=== PATIENT | male | born 1985 | race American Indian/Alaskan Native ===

== ENCOUNTER 2021-03-12 14:41 | Observation (INO) | payer OTHER ==
[2021-03-12] MEDS ORDERED: SODIUM CHLORIDE 0.9% 1000 ML 1,000 ML IV ONE (16:54)
[2021-03-12] MEDS ORDERED: diphenhydrAMINE 50 MG/ML VIAL IV ONE (16:55)
[2021-03-12] MEDS ORDERED: METOCLOPRAMIDE 10 MG/2 ML INJ IV ONE (16:55)
[2021-03-12] MEDS ORDERED: LACTATED RINGERS 1,000 ML IV ONE (16:55)
--- NOTE | 2021-03-12 16:57 | Emergency Department Report ---
ED General Adult HPI - General Chief complaint: Seizure Stated complaint: I am not sure what happened PUI?: No Time Seen by Provider: 03/12/21 16:13 Source: patient, EMS ( EMS documentation not available at time of chart dictation ), RN notes reviewed Mode of arrival: Stretcher Limitations: Other (Patient does not recall what happened) - History of Present Illness Initial comments: The patient is a 36-year-old gentleman. He is not known to myself previously. He is right-hand dominant. He denies chronic medical conditions. He denies recreational drug consumption. He is reportedly brought to the hospital by emergency medical services for a possible seizure. The patient reports that he was at work. He does not know what happened next. He was told that he may have had a convulsion or a seizure. The patient has bilateral shoulder pain, and generalized body aches. He has mild nausea. He denies headache, neck pain, chest pain, abdominal pain, shortness of breath, urinary symptoms, focal extremity weakness/numbness, loss of taste, loss of smell. He endorses generalized loss of appetite. He states this has never happened to him before. The patient is not currently accompanied by friends or family at this time for collateral information or additional information. He does have bilateral nonradiating shoulder pain, which is aching and throbbing, increases with palpation and range of motion. Decreases with rest. -: Sudden Consistency: now resolved Improves with: none Worsens with: none - Related Data Previous Rx's Medication Instructions Recorded Last Taken Type traMADoL [Ultram] 50 mg PO Q6HR PRN #20 tablet 03/13/21 Unknown Rx Allergies Allergy/AdvReac Type Severity Reaction Status Date / Time No Known Allergies Allergy Unverified 03/12/21 15:17 ED Review of Systems ROS: Stated complaint: SEIZURE Other details as noted in HPI Constitutional: other (Denies loss of taste and smell). denies: chills, fever, weakness Eyes: denies: eye discharge, vision change ENT: denies: epistaxis Respiratory: denies: cough Cardiovascular: denies: chest pain Gastrointestinal: denies: vomiting, diarrhea, hematemesis, melena, hematochezia Genitourinary: denies: dysuria Musculoskeletal: back pain, arthralgia, myalgia Neurological: weakness. denies: numbness, abnormal gait Psychiatric: anxiety ED Past Medical Hx - Past Medical History Previous Medical History?: No - Surgical History Past Surgical History?: No - Social History Smoking Status: Current Every Day Smoker - Medications Home Medications: Home Medications Medication Instructions Recorded Confirmed Last Taken Type traMADoL [Ultram] 50 mg PO Q6HR PRN #20 tablet 03/13/21 Unknown Rx ED Physical Exam - General Limitations: No Limitations General appearance: alert, in no apparent distress - Head Head exam: Present: atraumatic, normocephalic - Eye Eye exam: Present: normal appearance, PERRL, EOMI. Absent: nystagmus Pupils: Present: other (Visual acuity intact to finger counting, color perception, reading at a close distance) - ENT ENT exam: Present: normal orophraynx, mucous membranes moist, normal external ear exam - Neck Neck exam: Present: normal inspection, full ROM. Absent: tenderness, meningismus - Respiratory Respiratory exam: Present: normal lung sounds bilaterally. Absent: respiratory distress, wheezes, rales, rhonchi, stridor, decreased breath sounds - Cardiovascular Cardiovascular Exam: Present: regular rate, normal rhythm, normal heart sounds. Absent: bradycardia, tachycardia, irregular rhythm, systolic murmur, diastolic murmur, rubs, gallop - GI/Abdominal GI/Abdominal exam: Present: soft. Absent: distended, tenderness, guarding, rebound, rigid, pulsatile mass - Rectal Rectal exam: Present: deferred - Extremities Exam Extremities exam: Present: normal inspection, full ROM, tenderness (There is bilateral proximal shoulder tenderness.), other (2+ pulses noted in the bilateral upper and lower extremities. There is no palpable cord. negative Homans sign. Muscular compartments are soft. The pelvis is stable.). Absent: pedal edema, calf tenderness - Back Exam Back exam: Present: normal inspection. Absent: tenderness, CVA tenderness (R), CVA tenderness (L), paraspinal tenderness, vertebral tenderness - Neurological Exam Neurological exam: Present: alert, oriented X3, normal gait, other (No facial droop. Tongue midline. Extraocular movements intact bilaterally. Facial sens ation intact to light touch in V1, V2, V3 distribution bilaterally. 5 and a 5 strength in 4 extremities. Sensation intact to light touch in 4 extremities.). Absent: motor sensory deficit - Psychiatric Psychiatric exam: Present: anxious - Skin Skin exam: Present: warm, dry, intact, normal color. Absent: rash ED Course Vital Signs 03/12/21 03/12/21 03/12/21 15:09 15:15 15:16 Temperature 99.2 F Pulse Rate 116 H 123 H Respiratory 17 17 Rate Blood Pressure 131/96 Blood Pressure [Right] O2 Sat by Pulse 96 96 Oximetry 03/12/21 03/12/21 03/12/21 17:01 18:00 19:01 Temperature Pulse Rate 82 97 H 86 Respiratory 18 25 H 20 Rate Blood Pressure 123/86 133/93 133/93 Blood Pressure [Right] O2 Sat by Pulse 99 99 99 Oximetry 03/12/21 03/12/21 03/12/21 20:01 21:01 22:01 Temperature Pulse Rate Respiratory 21 15 13 Rate Blood Pressure 144/97 149/93 Blood Pressure [Right] O2 Sat by Pulse 99 99 100 Oximetry 03/12/21 03/13/21 03/13/21 23:01 00:01 01:15 Temperature Pulse Rate Respiratory Rate Blood Pressure 149/93 149/93 149/93 Blood Pressure [Right] O2 Sat by Pulse 100 99 55 L Oximetry 03/13/21 03/13/21 03/13/21 02:20 03:00 03:54 Temperature Pulse Rate Respiratory Rate Blood Pressure 141/94 137/92 137/92 Blood Pressure [Right] O2 Sat by Pulse Oximetry 03/13/21 03/13/21 03/13/21 04:00 04:54 05:00 Temperature Pulse Rate Respiratory Rate Blood Pressure 137/92 142/97 142/97 Blood Pressure [Right] O2 Sat by Pulse Oximetry 03/13/21 03/13/21 03/13/21 05:46 05:54 06:00 Temperature Pulse Rate Respiratory Rate Blood Pressure 142/97 135/101 135/101 Blood Pressure [Right] O2 Sat by Pulse Oximetry 03/13/21 03/13/21 03/13/21 06:23 06:54 07:00 Temperature Pulse Rate Respiratory Rate Blood Pressure 135/101 131/91 131/91 Blood Pressure [Right] O2 Sat by Pulse Oximetry 03/13/21 03/13/21 03/13/21 07:18 07:20 07:30 Temperature Pulse Rate Respiratory Rate Blood Pressure 135/101 135/101 131/91 Blood Pressure [Right] O2 Sat by Pulse 97 96 96 Oximetry 03/13/21 03/13/21 03/13/21 07:40 07:50 08:00 Temperature Pulse Rate Respiratory Rate Blood Pressure 131/91 131/91 147/99 Blood Pressure [Right] O2 Sat by Pulse 97 96 96 Oximetry 03/13/21 03/13/21 03/13/21 08:10 08:20 08:36 Temperature Pulse Rate 94 H Respiratory 18 Rate Blood Pressure 147/99 147/99 Blood Pressure 149/99 [Right] O2 Sat by Pulse 97 99 100 Oximetry - Reevaluation(s) Reevaluation #1: 03/12/21 17:40 Differential diagnosis, including but not limited to: Seizure, convulsion, thyroid derangement, electrolyte derangement, structural intracranial abnormality, orthostasis, vagal event, structural cardiac disease Assessment and plan: 36-year-old gentleman with possible first-time seizure. He is not currently tachycardic, tachypneic or hypoxic. He denies DVT and pulmonary embolism risk factors, he is low risk by Wells criteria. His tachycardia has resolved. He has a GCS of 15, walks with a steady gait, and is clinically sober. He has bilateral shoulder tenderness. We will treat his symptoms, obtain appropriate laboratory studies, x-ray of the shoulders, noncontrast CT scan of the brain, urinalysis, urine toxicology screen, and reassess. Patient was placed on teletypesetter monitor, seizure precautions will be initiated. Have requested EMS prehospital records. Currently waiting for them to arrive. Reassess after initial data points Have discussed this plan of care with the patient. He has verbalized understanding. He is amenable to this plan of care. 03/12/21 20:32 CT scan of the brain negative for acute findings. X-ray suggest proximal left humerus fracture, and possible scapular fracture. D-dimer elevated. CT scan of chest ordered. Given proximal left humerus fracture, questionable scapular fracture, nonspecific transaminitis (suspect that the patient is not forthcoming about alcohol consumption), new onset convulsion, admit patient to the medical service for supportive care, further diagnostic work-up. Have requested orthopedics consultation. Awaiting callback. Have discussed the patient's history, physical, laboratory studies and imaging studies, plan of care with neurology on-call, Dr. Whelan. Inpatient MRI is recommended. Routine EEG if possible, recommended. Hold AED at this time. Have discussed this plan of care with the patient. He is amenable to admission. 03/12/21 20:42 03/12/21 22:45 Dr. Brink paged at 20:27, 21:03, and 21:45. No answer. I also personally called him at 8: 41 PM, and 09:12 PM. Have escalated this to Director physician services, Mr. Serge Johnson. Hospital team reluctant to admit this patient to the medical service without orthopedic consultation for scapular fracture. CT scan of the chest negative for pulmonary embolism. Right-sided scapular fracture is redemonstrated. 03/12/21 23:[address] back from Dr. Brink our orthopedist. Have reached out to [facility], and had a discussion with their consulting orthopedist, Dr. Mosher. We have discussed the patient's history, physical, pertinent imaging studies, and pertinent diagnoses. We are both in agreement th at this patient does not require emergent orthopedic evaluation this evening, and this patient can have a sling applied to his right upper extremity for comfort, and follow-up with an outpatient orthopedist for elective outpatient surgical fixation of the right posterior scapular injury. Right upper extremity arm sling is reordered. Pain medication ordered. Hospital physician, Dr. Heike Arrieta to admit to [facility] Please note that portions of this chart were completed during [facility] downtime. [facility]. 03/15/21 06:22 ED Medical Decision Making - Lab Data Result diagrams: 03/12/21 18:21 03/12/21 18:21 Vital Signs 03/12/21 03/12/21 03/12/21 15:09 15:15 15:16 Temperature 99.2 F Pulse Rate 116 H 123 H Respiratory 17 17 Rate Blood Pressure 131/96 O2 Sat by Pulse 96 96 Oximetry - EKG Data -: EKG Interpreted by Ca EKG shows normal: sinus rhythm Rate: normal - EKG Data When compared to previous EKG there are: previous EKG unavailable 03/12/21 17:39 EKG interpreted at 17: 03 Sinus rhythm, 87 bpm. Normal axis, QTC 473 ms. Poor R wave progression. High left ventricular voltage. Minimal motion artifact, borderline early repolarization. Not consistent with Brugada. Epsilon wave is not noted. - Radiology Data Radiology results: pending, report reviewed, image reviewed XR shoulder BILAT 2+V INDICATION: Shoulder pain. COMPARISON: None available. FINDINGS: There is a questionable impacted fracture of the surgical neck of the proximal left humerus, which could potentially be chronic. In the right scapula, there is a lucency concerning for a possible right scapular fracture involving the scapular body and glenoid. Signer Name: Atul Bell MD Signed: 03/12/2021 4:34 PM Workstation Name: [id number] CT BRAIN: 03/12/2021 INDICATION / CLINICAL INFORMATION: first time sz. COMPARISON: None available. FINDINGS: BRAIN/INTRACRANIAL STRUCTURES: Unenhanced CT images of the brain demonstrate no evidence of acute intracranial abnormality. Ventricles and sulci are somewhat prominent in size for a patient of this age, consistent with diffuse cerebral atrophy. There is no evidence of acute large vessel territory ischemic injury, hemorrhage, or mass. There are no abnormal extra-axial fluid collections. EXTRACRANIAL STRUCTURES: Unremarkab le. IMPRESSION: No acute abnormality. Cerebral atrophy. All CT scans at this location are performed using dose reduction to ALARA by means of automated exposure control. Signer Name: Andrea Alatorre MD Signed: 03/12/2021 6:14 PM Workstation Name: [id number] CTA CHEST WITH CONTRAST INDICATION / CLINICAL INFORMATION: sz vs syncope + d dimer, 100ML 350 ONMI GIVEN. TECHNIQUE: Axial CT images were obtained through the chest after injection of IV contrast. 3 plane MIP and/or 3D reconstructions were produced. All CT scans at this location are performed using CT dose reduction for ALARA by means of automated exposure control. COMPARISON: None available. FINDINGS: PULMONARY ARTERIES: No pulmonary emboli seen in the central pulmonary arteries or lobar arteries. THORACIC AORTA: No significant abnormality. HEART: No significant abnormality. CORONARY ARTERY CALCIFICATION: None. MEDIASTINUM / ROBBIN: Tiny focus of gas in the anterior mediastinum may be injection related. PLEURA: No pleural effusion. No pneumothorax. LUNGS: No acute air space or interstitial disease. ADDITIONAL FINDINGS: None. UPPER ABDOMEN: Hepatic steatosis SKELETAL STRUCTURES: Severely comminuted right scapular fra cture. IMPRESSION: 1. No CT evidence for pulmonary embolism. 2. Comminuted right scapular fracture. 3. Hepatic steatosis. IMPORTANT FINDING Time of Commu nication (MOSAIC FLOOR LAYER/CDT): 8:53 PM Licensed Practitioner Receiving Report: Michael Benitez Signer Name: Luciano Parrish MD Signed: 03/12/2021 8:53 PM Workstation Name: [id number] 23: 37 PM. 03/12/2021. LEFT HUMERUS 2 VIEW(S) INDICATION / CLINICAL INFORMATION: left arm pain prox humerus fx COMPARISON: Shoulder radiographs performed earlier today. FINDINGS: BONES / JOINT(S): There is a fracture of the surgical neck of the left proximal humerus which appears unchanged from the shoulder radiographs earlier. No other fracture is seen in the left humerus. No significant arthritis. SOFT TISSUES: No significant abnormality. ADDITIONAL FINDINGS: None. Critical care attestation.: If time is entered above; I have spent that time in minutes in the direct care of this critically ill patient, excluding procedure time. ED Disposition Clinical Impression: Bilateral shoulder pain, Convulsion, Right scapula fracture, Closed fracture of left proximal humerus, Elevated liver enzymes Disposition: OP ADMIT IP TO THIS HOSP Is pt being admited?: Yes Does the pt Need Aspirin: No Condition: Good
--- NOTE | 2021-03-12 17:38 | XRay Report ---
XR shoulder BILAT 2+V INDICATION: Shoulder pain. COMPARISON: None available. FINDINGS: There is a questionable impacted fracture of the surgical neck of the proximal left humerus, which co uld potentially be chronic. In the right scapula, there is a lucency concerning for a possible right scapular fracture involving the scapular body and glenoid. Signer Name: Atul Bell MD Signed: 03/12/2021 5:34 PM Workstation Name: [id number]
[2021-03-12 18:43] LABS: Hematocrit 42.8 % (35.5-45.6); Hemoglobin 14.8 gm/dl (11.8-15.2); Mean Corpuscular HGB Conc 35 % (32-34); Mean Corpuscular Volume 96 fl (84-94); Platelet Count 201 K/mm3 (140-440); Red Blood Count 4.46 M/mm3 (3.65-5.03); Red Cell Distribution Width 14.3 % (13.2-15.2)
[2021-03-12 19:03] LABS: INR 0.99 (0.87-1.13)
[2021-03-12 19:04] LABS: Alanine Aminotransferase 60 units/L (7-56); Albumin 4.2 g/dL (3.9-5); BUN/Creatinine Ratio 8; Blood Urea Nitrogen 8 mg/dL (9-20); Calcium 8.5 mg/dL (8.4-10.2); Hemolysis Index 22
--- NOTE | 2021-03-12 19:19 | Cat Scan Report ---
. CT BRAIN: 03/12/2021 INDICATION / CLINICAL INFORMATION: first time sz. COMPARISON: None available. FINDINGS: BRAIN/INTRACRANIAL STRUCTURES: Unenhanced CT images of the brain demonstrate no evidence of acute int racranial abnormality. Ventricles and sulci are somewhat prominent in size for a patient of this age, consistent with diffus e cerebral atrophy. There is no evidence of acute large vessel territory ischemic injury, hemorrhage, or mass. There are no abnormal extra-axial fluid collections. EXTRACRANIAL STRUCTURES: Unremarkable. IMPRESSION: No acute abnormality. Cerebral atrophy. All CT scans at this location are performed using dose reduction to ALARA by means of automated expos ure control. Signer Name: Andrea Alatorre MD Signed: 03/12/2021 7:14 PM Workstation Name: [id number]
[2021-03-12] MEDS ORDERED: LORazepam 2 MG/ML VIAL IV PRN ×3 (20:24)
--- NOTE | 2021-03-12 20:27 | Consultation ---
Medications and Allergies Allergies Allergy/AdvReac Type Severity Reaction Status Date / Time No Known Allergies Allergy Unverified 03/12/21 15:17 Home Medications Medication Instructions Recorded Confirmed Last Taken Type No Known Home Medications [No 03/12/21 03/12/21 Unknown History Reported Home Medications] Active Meds: Active Medications Thiamine HCl 100 mg/ Folic Acid 1 mg/ Multivitamins/Minerals 10 ml/ Sodium Chloride 1,011.2 mls @ 250 mls/hr IV ONCE ONE Stop: 03/13/21 00:26 Lorazepam (Lorazepam 2 Mg/Ml Vial) 2 mg IV Q1HR PRN PRN Reason: CIWA-Ar 8-15 Lorazepam (Lorazepam 2 Mg/Ml Vial) 4 mg IV Q1HR PRN PRN Reason: CIWA-Ar 16-25 Lorazepam (Lorazepam 2 Mg/Ml Vial) 4 mg IV Q15MIN PRN PRN Reason: CIWA-Ar >25 Physical Examination - Vital Signs Vital Signs: Vital Signs Pulse Resp Pulse Ox 116 H 17 96 03/12/21 15:09 03/12/21 15:09 03/12/21 15:09 Results - Laboratory Findings CBC and BMP: 03/12/21 18:21 03/12/21 18:21 Abnormal Lab Findings: Abnormal Labs 03/12/21 03/12/21 03/12/21 18:21 18:21 18:21 MCV MCH MCHC D-Dimer Potassium 3.5 L Chloride 93.1 L BUN 8 L Total Bilirubin 1.60 H AST 130 H ALT 60 H Salicylates < 0.3 L Acetaminophen 5.0 L 03/12/21 03/12/21 18:21 18:21 MCV 96 H MCH 33 H MCHC 35 H D-Dimer 6555.53 H Potassium Chloride BUN Total Bilirubin AST ALT Salicylates Acetaminophen Assessment and Plan [facility] Consult Note # Demographics Consult Type: General Neurology Patient Location: Emergency Room First Name: Juan Last Name: Anastasia Date of : 1985 Age: 36 Gender: Male Time of Initial Page (Eastern Time): 03/12/2021, 19:45 Time of Return Call (Eastern Time): 03/12/2021, 19:45 # HPI History: 36 yo man with no significant medical history presents for possible seizure. Was at work today and was tole that he may of had a seizure. Patient does notg recall episode. Head CT unremarkable. Shouler X-rady with possible right scapular fracture, questionable chronic fracture of proximal left humerus. Labwork with elevated AST, denies heavy alcohol use. # Assessment Impression: First time seizure # Plan Other: I have discussed my recommendations with the referring provider Recommendations: Admit for observation and ortho evaluation MRI brain without EEG (can be done as outpatient if not available inpatient) No anti-seizure medication at this time, however if patient has second seizure would start on Keppra 500 mg BID Seizure precautions including no driving Follow-up with neurology as outpatient Disposition: admit # Log[employer] Telemedicine: phone only
[2021-03-12] MEDS ORDERED: THIAMINE 100 MG, FOLIC ACID 1 MG, MULTIPLE VITAMIN INJ, ADULT 10 ML in SODIUM CHLORIDE ... IV ONE (21:24)
--- NOTE | 2021-03-12 21:58 | Cat Scan Report ---
CTA CHEST WITH CONTRAST INDICATION / CLINICAL INFORMATION: sz vs syncope + d dimer, 100ML 350 ONMI GIVEN. TECHNIQUE: Axial CT images were obtained through the chest after injection of IV contrast. 3 plane AL P and/or 3D reconstructions were produced. All CT scans at this location are performed using CT dose reduction for ALARA by means of automated exposure control. COMPARISON: None available. FINDINGS: PULMONARY ARTERIES: No pulmonary emboli seen in the central pulmonary arteries or lobar arteries. THORACIC AORTA: No significant abnormality. HEART: No significant abnormality. CORONARY ARTERY CALCIFICATION: None. MEDIASTINUM / ROBBIN: Tiny focus of gas in the anterior mediastinum may be injection related. PLEURA: No pleural effusion. No pneumothorax. LUNGS: No acute air space or interstitial disease. ADDITIONAL FINDINGS: None. UPPER ABDOMEN: Hepatic steatosis SKELETAL STRUCTURES: Severely comminuted right scapular fracture. IMPRESSION: 1. No CT evidence for pulmonary embolism. 2. Comminuted right scapular fracture. 3. Hepatic steatosis. IMPORTANT FINDING Time of Communication (FINGER LIFT OPERATOR/CDT): 8:53 PM Licensed Practitioner Receiving Report: Michael Benitez Signer Name: Luciano Parrish MD Signed: 03/12/2021 9:53 PM Workstation Name: [id number]
--- NOTE | 2021-03-13 00:41 | XRay Report ---
LEFT HUMERUS 2 VIEW(S) INDICATION / CLINICAL INFORMATION: left arm pain prox humerus fx COMPARISON: Shoulder radiographs performed earlier today. FINDINGS: BONES / JOINT(S): There is a fracture of the surgical neck of the left proximal humerus which appears unchanged from the shoulder radiographs earlier. No other fracture is seen in the left humerus. No significant arthritis. SOFT TISSUES: No significant abnormality. ADDITIONAL FINDINGS: None. Signer Name: Tobias Conner MD Signed: 03/13/2021 12:00 AM Workstation Name: [id number]
[2021-03-13] MEDS ORDERED: KETOROLAC 30 MG/1 ML INJ IV ONE (01:30)
[2021-03-13] MEDS ORDERED: MORPHINE 4 MG/1 ML INJ IV ONE (01:30)
[2021-03-13] MEDS ORDERED: KETOROLAC 30 MG/1 ML INJ ONE (01:34)
[2021-03-13] MEDS ORDERED: MORPHINE 4 MG/1 ML INJ ONE (01:35)
[2021-03-13] MEDS ORDERED: ONDANSETRON 4 MG/2 ML INJ IV PRN (04:04)
[2021-03-13] MEDS ORDERED: MAGNESIUM HYDROXIDE (MOM) ORAL LIQD UDC PO PRN (04:04)
[2021-03-13] MEDS ORDERED: MORPHINE 2 MG/1 ML INJ IV PRN (04:04)
[2021-03-13] MEDS ORDERED: MORPHINE 4 MG/1 ML INJ IV PRN (04:04)
[2021-03-13] MEDS ORDERED: ACETAMINOPHEN 325 MG TAB PO PRN (04:04)
--- NOTE | 2021-03-13 04:16 | History and Physical Report ---
History of Present Illness Date of examination: 03/13/21 Date of admission: 03/13/2021 Chief complaint: Possible seizures History of present illness: 60-year-old -[place] male with no significant past medical history was brought into the emergency room today by EMS for possible seizures. Patient was at work when he was said to have had what appeared to be seizure-like activity. He thereafter started having bilateral shoulder pain and generalized body aches . He had some nausea but no vomiting. Patient denies any headache or dizziness, no neck pain, no chest pain or shortness of breath, no hematuria or dysuria. Patient denies any fever or chills, denies any sick contacts and there is no recent travel. Patient denies any contact with anyone with COVID-19. He also denies using any recreational drugs. He however admits that he celebrated his birthday a few days ago and drank a lot of alcohol. He denies drinking on a daily basis. Patient's shoulder pain is throbbing and increases with range of motion but improves with rest. Work-up in the emergency room today, CT of the head was unremarkable. CT angiogram shows no evidence of pulmonary embolism. There is comminuted right scapular fracture. There is also hepatic steatosis. Labs were significant for mild hypokalemia of 3.5, elevated D-dimer of 6505, bilirubin of 1.60, AST of 130, ALT 60. Past History Past Medical History: No medical history Past Surgical History: No surgical history Social history: smoking (Current daily smoker), full code Family history: no significant family history Medications and Allergies Allergies Allergy/AdvReac Type Severity Reaction Status Date / Time No Known Allergies Allergy Unverified 03/12/21 15:17 Home Medications Medication Instructions Recorded Confirmed Last Taken Type No Known Home Medications [No 03/12/21 03/12/21 Unknown History Reported Home Medications] Active Meds: Active Medications Acetaminophen (Acetaminophen 325 Mg Tab) 650 mg PO Q4H PRN PRN Reason: Pain MILD(1-3)/Fever >100.5/SOTO Lorazepam (Lorazepam 2 Mg/Ml Vial) 2 mg IV Q1HR PRN PRN Reason: CIWA-Ar 8-15 Lorazepam (Lorazepam 2 Mg/Ml Vial) 4 mg IV Q1HR PRN PRN Reason: CIWA-Ar 16-25 Lorazepam (Lorazepam 2 Mg/Ml Vial) 4 mg IV Q15MIN PRN PRN Reason: CIWA-Ar >25 Magnesium Hydroxide (Magnesium Hydroxide (Mom) Oral Liqd Udc) 30 ml PO Q4H PRN PRN Reason: Constipation Morphine Sulfate (Morphine 2 Mg/1 Ml Inj) 2 mg IV Q4H PRN PRN Reason: Pain, Moderate (4-6) Morphine Sulfate (Morphine 4 Mg/1 Ml Inj) 4 mg IV Q4H PRN PRN Reason: Pain , Severe (7-10) Ondansetron HCl (Ondansetron 4 Mg/2 Ml Inj) 4 mg IV Q8H PRN PRN Reason: Nausea And Vomiting Sodium Chloride (Sodium Chloride 0.9% 10 Ml Flush Syringe) 10 ml IV BID OLIVIA Sodium Chloride (Sodium Chloride 0.9% 10 Ml Flush Syringe) 10 ml IV PRN PRN PRN Reason: LINE FLUSH Review of Systems Constitutional: no fever, no chills Ears, nose, mouth and throat: no nasal congestion, no sore throat Cardiovascular: no chest pain, no palpitations Respiratory: no cough, no shortness of breath Gastrointestinal: no abdominal pain, no nausea, no vomiting, no diarrhea Genitourinary Male: no dysuria, no hematuria, no flank pain, no nocturia Musculoskeletal: no neck pain, no low back pain Integumentary: no rash, no pruritis Neurological: seizures, no headaches, no confusion Psychiatric: no anxiety, no depression Endocrine: no polyphagia, no polydipsia, no polyuria, no nocturia Exam - Constitutional Vitals: Temp Pulse Resp BP Pulse Ox 99.2 F 86 13 141/94 55 L 03/12/21 15:16 03/12/21 19:01 03/12/21 22:01 03/13/21 02:20 03/13/21 01:15 General appearance: Present: no acute distress, well-nourished - EENT Eyes: Present: PERRL, EOM intact. Absent: scleral icterus ENT: hearing intact, clear oral mucosa, dentition normal - Neck Neck: Present: supple, normal ROM - Respiratory Respiratory effort: normal Respiratory: bilateral: CTA - Cardiovascular Heart Sounds: Absent: gallop, systolic murmur, diastolic murmur, rub, click - Extremities Extremities: no ischemia, pulses intact, pulses symmetrical, No edema, normal temperature, normal color, Full ROM Peripheral Pulses: within normal limits - Abdominal General gastrointestinal: Present: soft, non-tender, non-distended, normal bowel sounds. Absent: mass - Integumentary Integumentary: Present: clear, warm, dry. Absent: rash - Musculoskeletal Musculoskeletal: strength equal bilaterally - Psychiatric Psychiatric: appropriate mood/affect, intact judgment & insight, memory intact, cooperative - Neurologic Neurologic: CNII-XII intact, no focal deficits, moves all extremities Results - Labs CBC & Chem 7: 03/12/21 18:21 03/12/21 18: Labs: Abnormal lab results 03/12/21 03/12/21 03/12/21 Range/Units 18: 18: 18: MCV (84-94) fl MCH (28-32) pg MCHC (32-34) % D-Dimer (0-234) ng/mlDDU Potassium 3.5 L (3.6-5.0) mmol/L Chloride 93.1 L (98-107) mmol/L BUN 8 L (9-20) mg/dL Total Bilirubin 1.60 H (0.1-1.2) mg/dL AST 130 H (5-40) units/L ALT 60 H (7-56) units/L Salicylates < 0.3 L (2.8-20.0) mg/dL Acetaminophen 5.0 L (10.0-30.0) ug/mL 03/12/21 03/12/21 Range/Units 18:21 18: MCV 96 H (84-94) fl MCH 33 H (28-32) pg MCHC 35 H (32-34) % D-Dimer 6555.53 H (0-234) ng/mlDDU Potassium (3.6-5.0) mmol/L Chloride (98-107) mmol/L BUN (9-20) mg/dL Total Bilirubin (0.1-1.2) mg/dL AST (5-40) units/L ALT (7-56) units/L Salicylates (2.8-20.0) mg/dL Acetaminophen (10.0-30.0) ug/mL Assessment and Plan - Patient Problems (1) Convulsion Current Visit: Yes Status: Acute Plan to address problem: Etiology is unclear. He denies any history of seizures. Possibly related to his alcohol intake. Patient will be placed on seizure precautions. We will schedule patient for EEG . Will also request neurology evaluation and recommendations regarding need for antiseizure medication. Meanwhile patient placed on lorazepam as needed. (2) Elevated liver enzymes Current Visit: Yes Status: Acute Plan to address problem: Possibly related to patient's alcohol intake. We will monitor liver enzymes. Consult placed to gastroenterology for evaluation. (3) Right scapula fracture Current Visit: Yes Status: Acute Plan to address problem: We will place patient on analgesic medication as needed. Consult placed to orthopedic surgery for evaluation. ER physician consulted orthopedic surgeon at [place] who recommended the patient be placed in a sling, given analgesic medication and possibly follow-up on outpatient basis. Consult has also been placed to Dr. Brink. (4) Hypokalemia Current Visit: Yes Status: Acute Plan to address problem: Potassium will be repleted and will monitor chemistry. (5) DVT prophylaxis Current Visit: Yes Status: Acute Plan to address problem: Patient placed on subcutaneous heparin.
[2021-03-13] MEDS ORDERED: POTASSIUM CHLORIDE ER 20 MEQ TAB PO NR ×2 (05:09→09:00)
[2021-03-13] MEDS: HEPARIN 5,000 UNIT/1 ML VIAL SUB-Q SCH ×2 (05:38→13:14)
[2021-03-13 08:25] LABS: Amphetamine Screen,Urine Negative; Benzodiazepines Screen,Urine Negative; Cannabinoid Screen,Urine Negative; Cocaine Screen,Urine Negative; Methadone Screen,Urine Negative; Opiate Screen,Urine Negative
[2021-03-13 08:26] LABS: Bilirubin,Urine NEG (Negative); Blood,Urine SM (Negative); Color,Urine Yellow (Yellow); Protein,Urine <15 mg/dL mg/dL (Negative); RBC,Urine < 1.0 /HPF (0.0-6.0)
--- NOTE | 2021-03-13 08:29 | Discharge Summary ---
Providers - Providers Date of Admission: 03/13/21 04:04 Attending physician: NAWAF CARTER MD 03/12/21 19:31 Consult to Physician [CONS] Urgent Comment: Consulting Provider: PAUL VICK Physician Instructions: Reason For Exam: scapula fx 03/13/21 04:08 Consult to Physician [CONS] Routine Comment: Consulting Provider: PAM LANG Physician Instructions: Reason For Exam: SEIZURS 03/13/21 04:10 Consult to Physician [CONS] Routine Comment: Consulting Provider: PATTI MERCHANT Physician Instructions: Reason For Exam: ELEVATED LIVER ENZYMES Primary care physician: DAIRY FROZEN MANAGER Hospitalization Reason for admission: Seizure Condition: Good Hospital course: 36-year-old -Italian male with no significant past medical history was brought into the emergency room today by EMS for possible seizures. Patient was at work when he was said to have had what appeared to be seizure-like activity. He thereafter started having bilateral shoulder pain and generalized body aches . He had some nausea but no vomiting. Patient denies any headache or dizziness, no neck pain, no chest pain or shortness of breath, no hematuria or dysuria. Patient denies any fever or chills, denies any sick contacts and there is no recent travel. Patient denies any contact with anyone with COVID-19. He also denies using any recreational drugs. He however admits that he celebrated his birthday a few days ago and drank a lot of alcohol. He denies drinking on a daily basis. Patient's shoulder pain is throbbing and increases with range of motion but improves with rest. Work-up in the emergency room today, CT of the head was unremarkable. CT angiogram shows no evidence of pulmonary embolism. There is comminuted right scapular fracture. There is also hepatic steatosis. Labs were significant for mild hypokalemia of 3.5, elevated D-dimer of 6505, bilirubin of 1.60, AST of 130, ALT 60. This morning the patient has mild bilateral shoulder pain but otherwise no other new complaints. No further seizure activities. We did have extensive discussion about cessation from all EtOH use. Also avoid driving according to [place] law. He verbalized understanding. AA information was also provided if this help is required. I have discussed with nursing staff to obtain an MRI of the head to ensure no other pathology and also to obtain Doppler of the lower extremity also discussed with the patient importance to follow-up with outpatient primary care doctor for further evaluation of elevated D-dimer as he may need a complete work-up to rule out any other malignancy or any other blood abnormality. Letter light replacement was done Likely Alcohol related SEIZURE avoid driving till cleared by Neurologist according to [place] law. avoid etoh Hypokalemia (1) seizure disorder (2) Elevated liver enzymes Current Visit: Yes Status: Acute Plan to address problem: Possibly related to patient's alcohol intake. We will monitor liver enzymes. Outpatient GI evaluation (3) Right scapula fracture Current Visit: Yes Status: Acute Plan to address problem: We will place patient on analgesic medication as needed. Consult placed to orthopedic surgery for evaluation. ER physician consulted orthopedic surgeon at [place] who recommended the patient be placed in a sling, given analgesic medication and possibly follow-up on outpatient basis. (4) Hypokalemia Current Visit: Yes Status: Acute Plan to address problem: Potassium will be repleted and will monitor chemistry. Elevated D-dimer Disposition: DC TO HOME OR SELFCARE Final Discharge Diagnosis (Prints w/discharge instructions): Seizure disorder Time spent for discharge: 35 MINS Core Measure Documentation - Palliative Care Palliative Care/ Comfort Measures: Not Applicable - Core Measures Any of the following diagnoses?: none Exam - Physical Exam Narrative exam: VITAL SIGNS: Reviewed. GENERAL: The patient appears normally developed, Vital signs as documented. HEAD: No signs of head trauma. EYES: Pupils are equal. Extraocular motions intact. EARS: Hearing grossly intact. MOUTH: Oropharynx is normal. NECK: No adenopathy, no JVD. CHEST: Chest with clear breath sounds bilaterally. No wheezes, rales, or rhonchi. CARDIAC: Regular rate and rhythm. S1 and S2, without murmurs, gallops, or rubs. VASCULAR: No Edema. Peripheral pulses normal and equal in all extremities. ABDOMEN: Soft, non tender and non distended. No rebound or guarding, and no masses palpated. Bowel Sounds normal. MUSCULOSKELETAL: Good range of motion of all major joints except right upper extremity at the shoulder angle tender to touch. Sling in place. Extremities without clubbing, cyanosis or edema. NEUROLOGIC EXAM: Alert and oriented x 3 No focal sensory or strength deficits. Speech normal. Follows commands. PSYCHIATRIC: Mood normal. SKIN: detail exam as documented in skin assessment - Constitutional Vitals: Temp Pulse Resp BP Pulse Ox 99.2 F 86 13 141/94 55 L 03/12/21 15:16 03/12/21 19:01 03/12/21 22:01 03/13/21 02:20 03/13/21 01:15 Plan Activity: no driving until cleared by PCP (OR Neurologist), fall precautions Diet: low fat Wound: per your surgeon's advice, other (KEEP SLING ON) Special Instructions: record daily BP diary, smoking cessation, keep arm in sling for 72 hours (until seen by ortho), other (AVOID ETOH) Plan of Treatment: REPEAT LIVER FUNCTION TEST OUTPATIENT FOLLOW WITH PCP FOR ELEVATED D.DIMER- FURTHER WORK UP WARRANTED Follow up with: PRIMARY CAREMD [Primary Care Provider] - 3-5 Days PAUL VICK MD [Staff Physician] - 7 Days (please call office to see if can see earlier. Arm in sling) CAMILA FAJARDO MD [Staff Physician] - 7 Days BALDEV SMITH MD [Staff Physician] - 7 Days YOGESH JACOB MD [Staff Physician] - 7 Days Prescriptions: traMADoL [Ultram] 50 mg PO Q6HR PRN #20 tablet PRN Reason: Pain
--- NOTE | 2021-03-13 09:52 | Magnetic Resonance Report ---
MRI BRAIN WITHOUT CONTRAST INDICATION / CLINICAL INFORMATION: SEIZURE, WEAKNESS. TECHNIQUE: Multiplanar, multisequence MR images of the brain were obtained. COMPARISON: Head CT on 03/12/2021 FINDINGS: BRAIN / INTRACRANIAL CONTENTS: No acute ischemia, acute hemorrhage, mass effect, midline shift, or hy drocephalus. No chronic infarct. There is mild cerebral atrophy greater than expected for the patien t's age. CRANIOCERVICAL JUNCTION: No significant abnormality. VASCULAR FLOW-VOIDS: No significant abnormality. ORBITS: No significant abnormality of visualized orbits. SINUSES / MASTOIDS: No significant abnormality of visualized sinuses and mastoid air cells. ADDITIONAL FINDINGS: None. IMPRESSION: 1. No acute findings. 2. Mild global cerebral atrophy, greater than expected given the patient's age. Signer Name: Atul Bell MD Signed: 03/13/2021 9:48 AM Workstation Name: [id number]
--- NOTE | 2021-03-13 11:13 | Vascular Lab Report ---
DUPLEX DOPPLER LOWER EXTREMITY VEINS, BILATERAL INDICATION: dvt. TECHNIQUE: Duplex doppler imaging was performed through the veins of both lower extremities using ve nous compression and other maneuvers. COMPARISON: No relevant prior imaging study available. FINDINGS: Right Common femoral vein: Negative. Right Superficial femoral vein: Negative. Right Popliteal vein: Negative. Right Calf veins: Negative. Left Common femoral vein: Negative. Left Superficial femoral vein: Negative. Left Popliteal vein: Negative. Left Calf veins: Negative. Additional findings: None. IMPRESSION: No sonographic evidence for DVT in either lower extremity. Signer Name: Malick Cooney Jr, MD Signed: 03/13/2021 11:08 AM Workstation Name: [id number]
[2021-03-13 11:56] VITALS: BP 147/99
--- NOTE | 2021-03-13 12:33 | Electrocardiograph Report ---
[facility] Test Date: 2021-03-12 Test Time: 17:03:39 Pat Name: [facility] Department: Room: A354 Gender: M Spindraw Operator: HAIDER : 1985 Requested By: BRANDEE RUIZ Order Number: [id number] Reading MD: Akilah Tucker Measurements Intervals [place] Rate: 87 P: 47 [place]: 130 QRS: 62 QRSD: 86 T: 68 QT: 392 QTc: 473 Interpretive Statements Sinus rhythm Normal ECG No previous ECG available for comparison Electronically Signed On 03-13-2021 12:32:32 EDT by Akilah Tucker
== END 2021-03-13 13:42 | disposition home or self-care (01) ==
LOC: ED 14:41 → 3A 03-13 04:04
PROVIDERS: ADMIT Internal Medicine Geriatric Medicine; ATTEND Internal Medicine
DX: S42.101A Fracture of unspecified part of scapula, right shoulder, initial encounter for closed fracture (principal); S42.202A Unspecified fracture of upper end of left humerus, initial encounter for closed fracture; R56.9 Unspecified convulsions; R74.8 Abnormal levels of other serum enzymes; R79.89 Other specified abnormal findings of blood chemistry; E87.6 Hypokalemia; F17.200 Nicotine dependence, unspecified, uncomplicated; X58.XXXA Exposure to other specified factors, initial encounter; Y93.89 Activity, other specified; Y92.89 Other specified places as the place of occurrence of the external cause; Y99.8 Other external cause status
CPT/HCPCS: 36415; 70450; 70551; 71275; 73030; 73060; 80053; 80307; 81001; 84443; 85027; 85379; 85610; 93005; 93970; 96361; 96365; 96372; 96375; 99285; G0378; J1200; J1644; J1885; J2270; J2765; J3411; J7030; J7120; Q9967; 80320; G0480